=== PATIENT | male | born 2000 | race Caucasian/White ===

== ENCOUNTER → 2022-07-18 | Outpatient (CLI) | payer OTHER ==
[~2022-07-18] MED LIST: TEST200I14 IM
== END ==
LOC: M LABSMTC 08:32
PROVIDERS: ATTEND Anesthesiology
DX: Z01.812 Encounter for preprocedural laboratory examination (principal); Z11.52 Encounter for screening for COVID-19

== ENCOUNTER 2022-07-23 09:31 | Observation (INO) | payer BC, OTHER ==
[~2022-07-23] VITALS: Ht 177.8 cm; Wt 65.3 kg
[2022-07-23] VITALS (8 sets, daily range): BP systolic 107–129; BP diastolic 55–73
[~2022-07-23 09:31] MED LIST changes: +ACETAMINOPHEN 1000MG 100ML IV BAG As Ordered ONE; +LIDOCAINE 2% 100MG/5ML SDV (FOR ANES.) As Ordered ONE; +MIDAZOLAM INJ 2MG/2ML VIAL As Ordered ONE; +ONDANSETRON 4MG 2ML VIAL As Ordered ONE; +ROCURONIUM BROMIDE 50MG/5ML VIAL As Ordered ONE; +SUGAMMADEX SODIUM 500 MG/5 ML VIAL (BRIDION) As Ordered ONE; +UNRESOLVED CLARIFICATION ENTRY XX SCH; +fentaNYL 250 MCG/5 ML INJECTION As Ordered ONE; +propofoL 200 MG/20 ML VIAL As Ordered ONE
[2022-07-23] MEDS ORDERED: LR 1,000 ML IV SCH (09:45)
[2022-07-23 09:56] LABS: HEMATOCRIT 43.7 % (42.0-52.0); HEMOGLOBIN 14.1 g/dl (13.5-17.5); MEAN CORPUSCULAR HEMOGLOBIN 28.1 pg (27.0-33.0); MEAN CORPUSCULAR HGB CONC 32.3 g/dl (32.0-36.5); MEAN CORPUSCULAR VOLUME 87.2 fl (80.0-96.0); PLATELET COUNT, AUTOMATED 161 10^3/uL (150-450); RED BLOOD COUNT 5.01 10^6/uL (4.30-6.10); WHITE BLOOD COUNT 8.4 10^3/uL (4.0-10.0)
[2022-07-23] MEDS ORDERED: HEPARIN SOD (PORCINE) 5000UNITS/ML 1ML VIAL/SYRINGE SQ ONE (10:00)
[2022-07-23] MEDS ORDERED: ceFAZolin SOD 2 GM in IV 1 EA IV ONE ×2 (10:00→17:15)
[2022-07-23] MEDS ORDERED: SCOPOLAMINE 1MG TRANSDERMAL PATCH TOP ONE (10:20)
[2022-07-23 10:26] LABS: BLOOD UREA NITROGEN 12 MG/DL (9-23); CALCIUM LEVEL 8.7 MG/DL (8.5-10.1); CARBON DIOXIDE LEVEL 28 MMOL/L (20-31); CHLORIDE LEVEL 107 MMOL/L (98-107); CREATININE FOR GFR 0.75 MG/DL (0.70-1.30); GLUCOSE, FASTING 90 MG/DL (60-100); POTASSIUM SERUM 4.7 MMOL/L (3.5-5.1); SODIUM LEVEL 141 MMOL/L (136-145)
[2022-07-23] MEDS ORDERED: BUPIVACAINE LIPOSOME/PF 1.3% 20ML VIAL (13.3MG/ML)(EXPAREL) As Ordered ONE (11:46)
[2022-07-23] MEDS ORDERED: BUPIVACAINE HCL 0.25% 10ML VIAL As Ordered ONE (11:46)
[2022-07-23] MEDS ORDERED: EPINEPHrine INJ 1 MG/ML 1ML AMP As Ordered ONE (11:46)
[2022-07-23] MEDS ORDERED: GENTAMICIN SULF 80MG/2ML VIAL As Ordered ONE (11:46)
[2022-07-23] MEDS ORDERED: LIDOCAINE 1% MDV 20ML VIAL As Ordered ONE (11:46)
[2022-07-23] MEDS ORDERED: ePHEDrine SULFATE 25 MG/5 ML(5MG/ML) SYRINGE As Ordered ONE (12:36)
[2022-07-23] MEDS ORDERED: ROCURONIUM BROMIDE 50MG/5ML VIAL As Ordered ONE (13:12)
[2022-07-23] MEDS ORDERED: HYDROmorphone HCL 2MG/ML 1ML VIAL As Ordered ONE (14:13)
[2022-07-23] MEDS ORDERED: oxyCODONE 5MG TAB PO PRN (15:15)
[2022-07-23] MEDS ORDERED: fentaNYL 100 MCG/2 ML INJECTION IV PRN (15:15)
[2022-07-23] MEDS ORDERED: ONDANSETRON 4MG 2ML VIAL IV PRN ×2 (15:15→15:45)
[2022-07-23] MEDS ORDERED: ACETAMINOPHEN TAB 650MG DOSE (2X325MG) PO PRN (15:45)
[2022-07-23] MEDS ORDERED: traMADol 50 MG TAB PO PRN (15:45)
[2022-07-23] MEDS: LR 1,000 ML IV SCH (16:00)
[2022-07-24] MEDS: LR 1,000 ML IV SCH (00:11)
[2022-07-24 03:42] VITALS: BP 99/56
[2022-07-24 08:00] VITALS: BP 106/33
[2022-07-24] MEDS: PERCOCET 5MG/325MG TAB PO PRN ×2 (08:12)
[2022-07-24] MEDS ORDERED: TRAM50TA2 PO (10:04)
== END 2022-07-24 13:00 | disposition home or self-care (01) ==
LOC: M SDC 09:31 → EDUNIT# 11:30 → M PED 15:41
PROVIDERS: ADMIT Plastic Surgery Surgery of the Hand; ATTEND Plastic Surgery Surgery of the Hand
DX: N62 Hypertrophy of breast (principal); F64.9 Gender identity disorder, unspecified; G43.909 Migraine, unspecified, not intractable, without status migrainosus; F43.10 Post-traumatic stress disorder, unspecified; Z87.891 Personal history of nicotine dependence; K59.00 Constipation, unspecified; Z91.041 Radiographic dye allergy status; Z91.018 Allergy to other foods; Z88.8 Allergy status to other drugs, medicaments and biological substances; F41.9 Anxiety disorder, unspecified; F32.A Depression, unspecified
CPT/HCPCS: 19303; 36415; 80048; 81025; 85027; 88305; 96361; 96365; J1100; J2405